=== PATIENT | female | born 1965 | race Caucasian/White ===

== ENCOUNTER 2018-06-03 07:32 | Day surgery (SDC) | payer OTHER ==
[2018-06-03] MEDS: NS 1,000 ML IV (06:00)
[2018-06-03] MEDS ORDERED: ePHEDrine SULFATE 25 MG/5 ML(5MG/ML) SYRINGE As Ordered (08:41)
[2018-06-03] MEDS ORDERED: PROPOFOL 200 MG/20 ML VIAL As Ordered (08:41)
[2018-06-03] MEDS ORDERED: LIDOCAINE 2% INJ 100 MG/5 ML SDV (FOR ANES.) As Ordered (08:41)
== END 2018-06-03 09:18 | disposition home or self-care (01) ==
LOC: M OPP 07:32
DX: Z12.11 Encounter for screening for malignant neoplasm of colon (principal); K64.0 First degree hemorrhoids; D64.9 Anemia, unspecified
CPT/HCPCS: 45378

== ENCOUNTER → 2019-09-26 | Outpatient (REF) | payer OTHER ==
[2019-09-26 20:14] LABS: INFLUENZA A AMPLIFICATION NEGATIVE (NEGATIVE); INFLUENZA B AMPLIFICATION POSITIVE (NEGATIVE)
== END ==
LOC: M LAB REF 18:47
PROVIDERS: ATTEND Physician Assistant
DX: R50.9 Fever, unspecified (principal); R05 Cough

== ENCOUNTER → 2019-10-27 | Outpatient (REF) | payer OTHER ==
[2019-10-27 17:04] LABS: LUTEINIZING HORMONE 40.3 mIU/mL
== END ==
LOC: M LAB REF 16:22
PROVIDERS: ATTEND Nurse Practitioner Family
DX: N91.2 Amenorrhea, unspecified (principal)

== ENCOUNTER 2020-04-22 06:55 | Day surgery (SDC) | payer OTHER ==
[~2020-04-22 06:55] MED LIST: PHENAZOPYRIDINE 100 MG TAB As Ordered ONE; PHENAZOPYRIDINE 100 MG TAB ONE; ceFAZolin 2 GM/D5W 50 ML IV BAG (J0690 PER 500MG) As Ordered ONE
[2020-04-22] MEDS ORDERED: fentaNYL 100 MCG/2 ML INJECTION (J3010) As Ordered ONE ×4 (07:13→11:54)
[2020-04-22] MEDS ORDERED: ROCURONIUM BROMIDE 50 MG/5 ML VIAL As Ordered ONE (07:14)
[2020-04-22] MEDS ORDERED: ONDANSETRON 4MG/2ML VIAL As Ordered ONE (07:14)
[2020-04-22] MEDS ORDERED: dexameTHASONE 4 MG/ML 1ML VIAL (J1100 PER 1MG) As Ordered ONE (07:14)
[2020-04-22] MEDS ORDERED: LIDOCAINE 2% 100MG/5ML SDV (FOR ANES.) As Ordered ONE (07:14)
[2020-04-22] MEDS ORDERED: MIDAZOLAM INJ 2MG/2ML VIAL (J2250 PER 1MG) As Ordered ONE (07:14)
[2020-04-22] MEDS ORDERED: propofoL 200 MG/20 ML VIAL As Ordered ONE (07:14)
[2020-04-22] MEDS ORDERED: KETOROLAC 60MG 2ML VIAL As Ordered ONE (07:57)
[2020-04-22] MEDS ORDERED: ACETAMINOPHEN 1000MG 100ML IV BTL (OFIRMEV) (J0131 PER 10MG) As Ordered ONE (07:57)
[2020-04-22] MEDS ORDERED: SUGAMMADEX SODIUM 500 MG/5 ML VIAL (BRIDION) As Ordered ONE (07:59)
[2020-04-22] MEDS ORDERED: KETAMINE HCL 200 MG/20 ML VIAL As Ordered ONE (08:36)
[2020-04-22] MEDS ORDERED: GLYCOPYRROLATE INJ 0.2 MG/ML 2 ML VIAL As Ordered ONE (08:39)
[2020-04-22] MEDS ORDERED: ePHEDrine SULFATE 25 MG/5 ML(5MG/ML) SYRINGE As Ordered ONE (09:55)
[2020-04-22] MEDS ORDERED: fentaNYL 100 MCG/2 ML INJECTION (J3010) ONE (11:54)
[2020-04-22] MEDS ORDERED: MORPHINE 1MG/ML IN 0.9% NACL 100ML IV BAG ONE (12:21)
[2020-04-22] MEDS ORDERED: MORPHINE 1MG/ML IN 0.9% NACL 100ML IV BAG As Ordered ONE (12:21)
[2020-04-22] MEDS ORDERED: IBUPROFEN 800 MG TAB As Ordered ONE ×2 (15:18→22:51)
[2020-04-22] MEDS ORDERED: IBUPROFEN 600MG TAB As Ordered ONE (22:53)
[2020-04-30] MEDS ORDERED: FENTANYL 2MCG/ML ROPIVACAINE 0.2% IN 0.9% NACL 100ML IVBAG As Ordered ONE (12:23)
--- NOTE | 2020-05-27 15:32 | ECGEPIP ---
[facility] Test Date: 2020-04-22 Pat Name: AYANA CAMPBELL Department: Room: - Gender: Female Field Services Manager: FRANCIS : 1965 Requested By: Amber Cooley Order Number: [id number] Reading MD: Adri Joaquin Measurements Intervals [place] Rate: 57 P: 49 SC: 136 QRS: 39 QRSD: 82 T: 58 QT: 424 QTc: 414 Interpretive Statements SINUS BRADYCARDIA BORDERLINE ECG SEE SCANNED DOWNTIME REPORT
[2020-06-13 16:43] LABS: HEMOGLOBIN 13.9 g/dl (12.0-15.5); MEAN CORPUSCULAR HEMOGLOBIN 29.4 pg (27.0-33.0); MEAN CORPUSCULAR HGB CONC 33.1 g/dl (32.0-36.5); PLATELET COUNT, AUTOMATED 249 10^3/uL (150-450); RED BLOOD COUNT 4.72 10^6/uL (4.00-5.40); WHITE BLOOD COUNT 4.8 10^3/uL (4.0-10.0)
--- NOTE | 2020-06-17 09:46 | RO ---
DATE OF OPERATION: April 22, 2020 PREOPERATIVE DIAGNOSIS AND INDICATIONS FOR SURGERY: Pain, bleeding, rectocele, and symptomatic pelvic relaxation, and also fibroids. POSTOPERATIVE DIAGNOSIS: Pain, bleeding, rectocele, and symptomatic pelvic relaxation, and also fibroids, with paravaginal stone noted. She also had Essure in place and that was also confirmed postoperatively. PROCEDURE: Robotic-assisted hysterectomy, bilateral salpingo-oophorectomy, also with removal of Essure. Sacrospinous suspension, posterior repair. Cystourethroscopy. Perineorrhaphy. Removal of paravaginal stone. SURGEON: Amber Chowdhury MD MANAGER FILE: NOA Gillis ANESTHESIA: General endotracheal anesthesia. SPECIMENS: Uterus, ovaries, tubes, Essure, and paravaginal stone. BRIEF DESCRIPTION OF PROCEDURE AND FINDINGS: Lisa was brought to the operating room, where sufficient general endotracheal anesthesia was induced. She was prepped, draped, positioned in the usual fashion, and the uterine manipulator placed. After the uterine manipulator had been placed, attention was turned to the abdomen where a transverse semi-lunar incision was made at the umbilicus. Sharp and blunt dissection was continued through subcutaneous tissues to the level of the rectus fascia, which was transversely incised and secured with 0- Vicryl retention sutures. Then, the peritoneum was entered under direct visualization in an open laparoscopic technique. The Yandy cannula was then placed and CO2 insufflation then begun. After adequate CO2 insufflation, the peritoneal cavity was visualized. There were normal shiny peritoneal surfaces throughout. We could see some scarring over the posterior uterus and what is possibly an endometriotic implant, although that diagnosis will have to wait the pathology. We also could see the Essure, at least on the patient's right side. The Essure appeared to be just under the serosa, so I am not sure whether it had attenuated the tube so much that it was that visible or if it was partially not in the tube. Either way, it clearly obstructed the tube adequately to prevent . Her ovaries were less scarred than feared. With Trendelenburg, we were able to place two left-sided ports and then one right-sided port and then start work with the robot. Working from the console, we carefully isolated the uterine vasculature and the ovarian vasculature. So, the infundibulopelvic ligament was isolated first on the left, cauterized, and transected. The ureters were readily visualized in this patient and we were able to keep well away from them. We then carefully continued our dissection to the superior aspect of the broad ligament to the level of the round ligament, which was also cauterized and transected. We then turned our attention to the patient's right side, where the same procedure was carried out. We then dissected the anterior aspect of the broad ligament and created the bladder flap and dissected posteriorly to let the ureters and other tissues drop away from the field of dissection. We then carefully cauterized the uterine vasculature. Then, having already displaced the bladder anteriorly, we went posteriorly and made the colpotomy and continued that incision around the base of the uterine manipulator cup, and thus, the uterus was freed from its attachments, as were the ovaries and tubes, and they were delivered into the vagina. There was some bleeding in the left angle, and so a 0-V-Loc suture was used to secure the angle, first on the left where we controlled that bleeding, and then on the right. We did not close the center portion of the vaginal cuff because of the intention to do the suspension. We went ahead then after taking the angle stitches and getting the bleeding under control, we then closed the peritoneum from above and thus completed the abdominal and intraperitoneal aspect of the case. We did take some pictures to document those findings. We then proceeded to the vaginal approach. With the uterus, of course, delivered, and the legs repositioned, er then used long Allis' to grasp the mid portion of that vaginal incision that we had made from above and used Strully scissors to cut posteriorly, making a T-shaped incision. Then, using that posterior dissection, we were able to dissect laterally on the right side to the sacrospinous ligament. We then placed two Anchosure anchors in the sacrospinous ligament. Each of these held two #2-0 Maxon sutures. We dissected the vaginal tissues away from the paravesical tissues anteriorly and rectovaginal tissues posteriorly. We then brought those sutures from the suspension back out through and through these tissues, catching a little of the paravesical and the rectovaginal tissues as well, coming in a four point apical suspension for the vagina using a Amin needle. With each of these stitches in place, we then used 0-Vicryl to close the cuff, the remainder of the cuff. As already noted, we had good hemostasis already, and we were careful to avoid incorporating these other sutures. We then tied down the first throw on each of the sacrospinous suspension sutures and scoped the patient. During the time of dissection, we had already done a rectovaginal exam, and of course changed gloves, so we knew we were away from the rectum posteriorly. But, we then scoped her to make sure that she still continued to have normal jets of urine, etc, and we found normal findings on the cystoscopy, normal bladder mucosa, no evidence of injury, and normal jets of pretty discolored urine as had been planned. We then turned our attention to perineal repair, as the patient did have laxity at the genital hiatus and a detachment of the rectovaginal septum from the perineal body. So, we dissected an inverted triangle of tissue at the perineum and then a right side up triangle of tissue at the introitus. We then undermined the vaginal epithelium and then did a [id number] plication, especially covering that right side where there was a clear rectovaginal defect. We also then brought that rectovaginal septum and secured it to the perineal body. We then also used 0-Vicryl to resupport the perineal body [id number], following which we had good repair without over closure for this young, still active patient. We then trimmed the remaining redundant tissues, closed the vaginal epithelium with 2-0 Vicryl in a running locked stitch, and then closed the perineal skin with a subcuticular stitch, again 2-0 Vicryl for this closure. During that closure, we noted on the patient's right side, a firm atypical feeling, hard, rounded, small mass, beneath the vaginal epithelium. We also noted a small right labial fistula, which was excised with removal of the excess tissue. Based on the location of this, it was clear that it was not involved in the ureteral system and it was clearly extraperitoneal. I was not sure what it was and we did not dissect that far laterally on the vagina, even though it was still on the posterior segment, at about 8:00 o'clock on the vagina. So, I held the lesion with Allis and then made an incision over top of it and shelled it out. It appears to be a paravaginal stone, but we did send that separately to pathology for evaluation. We then closed that wound with 2-0 Vicryl and did this while we were working on the closure of the vaginal portion of the repair, and then completed the rest of the repair. As noted, we had already done the cystoscopy and already checked a rectal exam. With new gloves, we went back up to the abdomen and closed the robotic port sites using the 0-Vicryl at the umbilicus, then used for retention sutures, and then using 3-0 Vicryl in subcuticular stitches on all of the wounds. Then, dry sterile dressing was then applied. ESTIMATED BLOOD LOSS: About 100 mL. FLUID REPLACEMENT: Crystalloid. COMPLICATIONS: None. CONDITION AND DISPOSITION: Lisa tolerated the procedure well and was recovering in the recovery room in good condition. edited: 06/23/2020 [id number]
[2020-06-22 15:03] LABS: HEMATOCRIT 30.4 % (36.0-47.0); MEAN CORPUSCULAR HEMOGLOBIN 29.4 pg (27.0-33.0); MEAN CORPUSCULAR HGB CONC 32.9 g/dl (32.0-36.5); MEAN CORPUSCULAR VOLUME 89.4 fl (80.0-96.0); PLATELET COUNT, AUTOMATED 183 10^3/uL (150-450); WHITE BLOOD COUNT 6.8 10^3/uL (4.0-10.0)
== END 2020-04-23 10:40 | disposition home or self-care (01) ==
LOC: M SDC 06:55
PROVIDERS: ATTEND Obstetrics & Gynecology
DX: R10.2 Pelvic and perineal pain (principal); N95.0 Postmenopausal bleeding; N72 Inflammatory disease of cervix uteri
CPT/HCPCS: 36415; 57260; 57282; 58571; 85027; 86850; 86900; 86901; 88307; 88311; 93005; C1713; J0131; J0690; J1100; J1885; J2250; J2405; J3010

== ENCOUNTER → 2022-12-21 | Outpatient (CLI) | payer OTHER | LOC: M SOG 08:17 | PROVIDERS: ATTEND Physician Assistant | DX: M79.641 Pain in right hand (principal); M79.642 Pain in left hand; M79.645 Pain in left finger(s); M79.644 Pain in right finger(s); M19.041 Primary osteoarthritis, right hand; M19.042 Primary osteoarthritis, left hand ==

== ENCOUNTER 2023-07-11 11:06 | Day surgery (SDC) | payer OTHER ==
[~2023-07-11] VITALS: Ht 172.7 cm; Wt 65.5 kg
[~2023-07-11 11:06] MED LIST changes: +ESTR1TAB; +NS 1,000 ML IV ONE; -PHENAZOPYRIDINE 100 MG TAB As Ordered ONE; -PHENAZOPYRIDINE 100 MG TAB ONE; -ceFAZolin 2 GM/D5W 50 ML IV BAG (J0690 PER 500MG) As Ordered ONE
[2023-07-11] MEDS ORDERED: propofoL 200 MG/20 ML VIAL As Ordered ONE (13:06)
[2023-07-11] MEDS ORDERED: fentaNYL 100 MCG/2 ML INJECTION As Ordered ONE (13:47)
[2023-07-11 14:25] VITALS: BP 107/55; TEMP 96.1; O2SAT 98
== END 2023-07-11 14:25 | disposition home or self-care (01) ==
LOC: M OPP 11:06
PROVIDERS: ATTEND Internal Medicine Gastroenterology
DX: K62.5 Hemorrhage of anus and rectum (principal); K64.0 First degree hemorrhoids; Z90.710 Acquired absence of both cervix and uterus
CPT/HCPCS: 45378; J3010

== ENCOUNTER → 2023-09-14 | Outpatient (CLI) | payer OTHER ==
[~2023-09-14] MED LIST changes: -NS 1,000 ML IV ONE
== END ==
LOC: M WUC 15:16
PROVIDERS: ATTEND Internal Medicine
DX: M25.511 Pain in right shoulder (principal)

== ENCOUNTER → 2024-02-19 | Outpatient (REF) | payer OTHER ==
[2024-02-19 16:36] LABS: APPEARANCE, URINE CLEAR (CLEAR); BACTERIA, URINE AUTO NEGATIVE (NEGATIVE); BILIRUBIN, URINE AUTO NEGATIVE (NEGATIVE); BLOOD, URINE BLOOD NEGATIVE (NEGATIVE); COLOR, URINE YELLOW (YELLOW); GLUCOSE, URINE (UA) AUTO NEGATIVE (NEGATIVE); KETONE, URINE AUTO NEGATIVE (NEGATIVE); LEUKOCYTE ESTERASE, URINE AUTO NEGATIVE (NEGATIVE); MUCUS, URINE SMALL (NEGATIVE); NITRITE, URINE AUTO NEGATIVE (NEGATIVE); PROTEIN, URINE AUTO NEGATIVE (NEGATIVE); RBC, URINE AUTO 0 /HPF (0-3); SPECIFIC GRAVITY URINE AUTO 1.016 (1.002-1.035); SQUAMOUS EPITHELIAL CELL UR AU 0 /HPF (0-6); UROBILINOGEN, URINE AUTO 0.2 mg/dL (0.0-2.0); WBC, URINE AUTO 1 /HPF (0-3)
== END ==
LOC: M LAB REF 16:15
PROVIDERS: ATTEND Internal Medicine
DX: Z01.810 Encounter for preprocedural cardiovascular examination (principal)

== ENCOUNTER → 2024-05-13 | Outpatient (CLI) | payer OTHER | LOC: M RAD 15:20 | PROVIDERS: ATTEND Nurse Practitioner Adult Health | DX: S22.22XA Fracture of body of sternum, initial encounter for closed fracture (principal); X58.XXXA Exposure to other specified factors, initial encounter; Y92.9 Unspecified place or not applicable ==